=== PATIENT | male | born 1975 | race Caucasian/White ===

== ENCOUNTER 2024-01-21 10:55 | Emergency (ER) | payer BC, SELFPAY ==
[2024-01-21 11:30] VITALS: BP 121/78; PULSE 65; RESP 18; TEMP 36.7; O2SAT 100; BMI 22.4
--- NOTE | 2024-01-21 11:37 | EXP.UTC ---
Discharge Plan Disposition Patient Disposition: Home, Self-Care Condition: Good Prescriptions Prescriptions: New methylprednisolone 4 mg Tablets,Dose Pack 4 mg PO DIRECTED 6 Days Qty: 21 0RF Rx Instructions: Take 1 pack as directed for 6 days amoxicillin-pot clavulanate 875-125 mg Tablet 1 tab PO Q12H Qty: 20 0RF Referrals Follow up/Referrals: Provider,Referral, MD [Primary Care Provider] - See instructions Activity Restrictions/Add. Instructions Additional Instructions/Restrictions: Take tylenol or ibuprofen for pain or fever. Take the medications as directed. Stop the amoxicillin that you are taking. Follow up with your regular doctor. Follow up with a dentist. GO TO THE ER FOR ANY WORSENING SYMPTOMS Clinical Impressions Clinical Impression: Sinusitis, Pain, dental Instructions Patient Instructions: Sinusitis, DI for Sinusitis Discharge ED Provider: Froylan Landry [facility] [place] [facility] [place] General Stated complaint: top jaw pain Time Seen by Provider: 01/21/24 11:37 History of Present Illness Provider Complaint: He states that for the past 4 days he has had left upper jaw pain. He does not know whether he is having an issue with his tooth or a sinus infection. He has had some sinus congestion also. He denies any fever/chills. Related Data Previous Rx's Medication Instructions Recorded amoxicillin 875 mg-potassium 1 tab PO Q12H #20 tabs 01/21/24 clavulanate 125 mg tablet methylprednisolone 4 mg tablets in 4 mg PO DIRECTED 6 days #21 tabs 01/21/24 a dose pack Allergies Allergy/AdvReac Type Severity Reaction Status Date / Time No Known Allergies Allergy Verified 01/21/24 11:40 [facility] Disclaimer: The information contained in this section may have been updated after the patient was seen, as this information can be updated by other users. Social History Smoking Status: Never smoker alcohol intake: never current occupational status: employed Travel in the last 8 weeks: None ROS Obtained: Yes All systems reviewed & no additional complaints except as documented Constitutional Constitutional: Reports poor appetite Eyes Eyes: Reports system reviewed and no additional complaints, except as documented ENT Ears, Nose, Mouth, and Throat: Reports as per HPI Cardiovascular Cardiovascular: Reports system reviewed and no additional complaints, except as documented and Denies chest pain Respiratory Respiratory: Denies shortness of breath, Denies chest congestion, Reports cough, Denies stridor and Denies wheezing Gastrointestinal Gastrointestingal: Reports system reviewed and no additional complaints, except as documented; Denies abdominal pain, diarrhea or vomiting Musculoskeletal Musculoskeletal: Reports system reviewed and no additional complaints, except as documented and Denies arthralgias Integumentary/Breasts Skin/Breast: Reports system reviewed and no additional complaints, except as documented and Denies rash Neurologic Neurologic: Denies paresthesias Allergic/Immunologic Allergic/Immunologic: Denies wheezing Physical Exam General General appearance: alert and in no apparent distress Head Head exam: atraumatic, normocephalic and normal inspection Eye Eye exam: Present normal appearance, PERRL and EOMI ENT ENT exam: Present mucous membranes moist, TM's normal bilaterally and normal external ear exam Expanded ENT Exam Nose exam: Absent sinus tenderness Nasal speculum exam: Bilateral: normal Mouth exam: Present normal external inspection; Absent drooling or tongue swelling Teeth exam: Present gingival swelling Throat exam: Present normal inspection Neck Neck exam: Present normal inspection, full ROM and trachea midline; Absent meningismus or lymphadenopathy Chest Chest inspection: Present normal inspection and symmetric chest wall rise; Absent tenderness Respiratory Respiratory exam: Present normal lung sounds bilaterally; Absent respiratory distress Cardiovascular Cardiovascular exam: Present regular rate and normal rhythm; Absent JVD Abdominal Exam Abdominal exam: Present soft and normal bowel sounds; Absent distention, tenderness or guarding Extremities Exam Extremities exam: Present normal inspection, full ROM and normal capillary refill; Absent calf tenderness Back Exam Back exam: Present normal inspection; Absent tenderness Neurological Exam Neurological exam: Present alert and oriented X3 Psychiatric Psychiatric exam: Present normal affect and normal mood Skin Skin exam: Present warm, dry, intact and normal color Lymphatic Lymphatic Findings: no adenopathy Medical Decision Making Medical Records Medical records reviewed: No I reviewed the patient's medical records. Imtiaz Inquiry Pt receiving controlled substance: No
[2024-01-21 12:29] VITALS: BP 121/78; PULSE 65; RESP 18; TEMP 36.7; O2SAT 100
== END 2024-01-21 12:29 | disposition home or self-care (01) ==
PROVIDERS: Emergency Provider Nurse Practitioner Family
DX: R68.84 Jaw pain (principal); J01.90 Acute sinusitis, unspecified; R09.81 Nasal congestion
CPT/HCPCS: 99204; 99212; G0463

== ENCOUNTER 2025-08-16 20:18 | Emergency (ER) | payer BC, SELFPAY ==
[2025-08-16 20:21] VITALS: BP 130/96; PULSE 67; RESP 18; TEMP 37.1; O2SAT 100; BMI 23.7
--- NOTE | 2025-08-16 20:42 | ED_ITS ---
Discharge Plan Disposition Patient Disposition: Home, Self-Care Prescriptions Prescriptions: No Action rizatriptan 10 mg tablet See Rx Instructions PO .COMPLEX Qty: 30 1RF Rx Instructions: take 1 tab at onset of headache; if no relief may repeat 1 tab after at least 2 hrs; max = 3 tabs/24 hr PO methylprednisolone 4 mg Tablets,Dose Pack 4 mg PO DIRECTED 6 Days Qty: 21 0RF Rx Instructions: Take 1 pack as directed for 6 days amoxicillin-pot clavulanate 875-125 mg Tablet 1 tab PO Q12H Qty: 20 0RF Referrals Follow up/Referrals: Provider,Referral, MD [Primary Care Provider, Medical] - See instructions Activity Restrictions/Add. Instructions Additional Instructions/Restrictions: You likely have a concussion as the cause of your symptoms. You will likely have a headache over the next several days. You can take Tylenol and ibuprofen to help with your headache. You may find that you are fatigued and have brain fog . Do not return to sports until you are cleared by your primary care physician and symptoms have resolved. If you develop any new or worsening symptoms, such as difficulty waking up, worsening confusion, vomiting, worsening headache, vision changes, or if you become concerned for your help for any reason, return to the emergency department for evaluation Clinical Impressions Clinical Impression: Concussion Instructions Patient Instructions: Concussion Print Language Print Language: Sudanese Discharge ED Provider: Devante Boo Adult HPI General Chief complaint: Head Injury Stated complaint: fall Time Seen by Provider: 08/16/25 20:27 Mode of Arrival: Ambulatory Source of Information: Patient and Significant Other Description of Symptoms (Recalled from ER Triage Doc. by RN): pt presents for evaluation of head injury that occurred approx 30 mins [employer] while the patient was playing pickleball. Family at the bedside reports that patient was running backwards when he lost balance and hit a will with the back of his head. Pt had +LOC at time of incident, as well as laceration to back of head. Pt does not take blood thinners. Reports slight confusion at time of incident, but is starting to remember as time goes on. Pt reports pain and tenderness to head with slight soreness in his neck. +ROM, +CMS. History of Present Illness HPI narrative: Jasmeet Gayle is a 50y male with a history of migraines but is otherwise healthy who presents to the emergency department after head injury. Patient and his state that he was playing pickle ball approximately 1 hour prior to arrival and was running after the ball when he tripped and fell, hitting the back of his head on a wall. His states that he lost consciousness for a second or 2. She states that after the incident, he was asking the same question repeatedly and that is when she became concerned. Patient states that he initially did not remember the incident but cannot remember falling and hitting his head now. They note a small abrasion over the posterior scalp. Patient denies headache, vision changes, neck pain, preceding chest pain, shortness of breath and has not been vomiting. Related Data Previous Rx's ?Medication ?Instructions ?Recorded amoxicillin 875 mg-potassium 1 tab PO Q12H #20 tabs clavulanate 125 mg tablet methylprednisolone 4 mg tablets in 4 mg PO DIRECTED 6 days #21 tabs 01/21/24 a dose pack rizatriptan 10 mg tablet See Rx Instructions PO .COMP IVETT 01/29/24 #30 tabs Allergies Allergy/AdvReac Type Severity Reaction Status Date / Time No Known Allergies Allergy Verified 01/29/24 08:54 [facility] Disclaimer: The information contained in this section may have been updated after the patient was seen, as this information can be updated by other users. Medical History (Updated 08/16/25 @ 20:42 by Devante Boo MD) Migraine Surgical History (Updated 01/29/24 @ 08:57 by Juliana Angel MA) History of dental surgery Family History (Updated 01/29/24 @ 08:58 by Juliana Angel MA) Family/Other No significant family history Social History (Updated 01/29/24 @ 09:00 by Juliana Angel MA) Smoking Status: Never smoker alcohol intake: never substance use type: denies use current occupational status: employed Travel in the last 8 weeks?: None lives independently: Yes marital status: Have you lived/traveled outside [place] in past 30 days?: No Contact w/someone who lives/traveled outside [place] past 30 days?: No Exposure to someone with infectious disease in past 14 days?: No Do you have a fever (greater than 100.4 F or 38 C)?: No Have you tested positive for COVID-19?: No Exposed to someone with COVID-19 in past 14 days?: No Do you have a sore throat?: No Do you have a cough?: No Do you have any weakness?: No Do you have any diarrhea?: No Are you experiencing any unusual bleeding?: No Do you have any muscle aches/pain?: No Do you have any abdominal pain?: No Are you experiencing loss of taste or smell?: No Other Medical History Have you received the Pneumonia Vaccine: No ROS Obtained: Yes Systems reviewed as appropriate & no additional complaints except as documented Physical Exam General General appearance: alert and in no apparent distress Head Head exam: other (small superficial abrasion over the posterior mid scalp) Eye Eye exam: Present normal appearance, PERRL and EOMI ENT ENT exam: Present normal external ear exam Neck Neck exam: Present normal inspection and full ROM; Absent tenderness Chest Chest inspection: Present symmetric chest wall rise Respiratory Respiratory exam: Present normal lung sounds bilaterally and stridor; Absent respiratory distress or wheezes Cardiovascular Cardiovascular exam: Present regular rate and normal rhythm Abdominal Exam Abdominal exam: Present soft; Absent tenderness or guarding exam: Present deferred Extremities Exam Extremities exam: Present normal inspection Back Exam Back exam: Present normal inspection; Absent vertebral tenderness Neurological Exam Neurological exam: Present alert, oriented X3, CN II-XII intact, normal gait and other (No dysdiadochokinesia, normal [id number] testing); Absent motor sensory deficit Psychiatric Psychiatric exam: Present normal affect Skin Skin exam: Present warm and dry Medical Decision Making Medical Records Screening: Per USPSTF and CDC recommendations, given the prevalence of disease in our region, it is our hospital?s policy to screen for HIV and viral Hepatitis for all patients aged 18 and over and those with ongoing risk factors. Imtiaz Inquiry Pt receiving controlled substance: No Vital Signs: 08/16/25 20:21 08/16/25 20:49 Temperature 98.7 F 97.9 F Temperature Source Oral Pulse Rate 69 Pulse Rate [Radial] 67 Respiratory Rate 18 20 Blood Pressure 126/69 Blood Pressure [Right Arm] 130/96 H Blood Pressure Mean [Right Arm] 107 Blood Pressure Position [Right Arm] Sitting 02 Sat by Pulse Oximetry 100 Oxygen Delivery Method Room Air Room Air Medical Decision Narrative: Jasmeet Gayle is a 50y male with a history of migraines but is otherwise healthy who presents to the emergency department after head injury. Patient and his state that he was playing pickle ball approximately 1 hour prior to arrival and was running after the ball when he tripped and fell, hitting the back of his head on a wall. His states that he lost consciousness for a second or 2. She states that after the incident, he was asking the same question repeatedly and that is when she became concerned. Patient states that he initially did not remember the incident but cannot remember falling and hitting his head now. They note a small abrasion over the posterior scalp. Patient denies headache, vision changes, neck pain, preceding chest pain, shortness of breath and has not been vomiting. On arrival, patient is hemodynamically stable, in no acute distress, breathing comfortably on room air with appropriate oxygen saturation. Patient is alert, answering questions appropriately, GCS 15. Cardiopulmonary exam is unremarkable with breath sounds present bilaterally. He has no abdominal tenderness. He has full range of motion of his neck and no tenderness in the mid C-spine. He does not appear intoxicated. He has a small superficial abrasion over the posterior mid scalp. Pupils equal round and reactive to light. Extraocular movements intact. Cranial nerves II through XII are intact. He has full strength and sensation to his bilateral upper and lower extremities. No dysdiadochokinesia. Normal [id number] testing. Patient's neurological exam is completely normal. Patient is not on any blood thinning medications. Based on [place] head CT rules, CT imaging of the head is not necessary for the patient as there is low concern for any clinically significant intracranial hemorrhage based on this. Based on NEXUS criteria, there is low concern for any fracture of the cervical spine. I explained he is low risk for any intracranial hemorrhage or cervical spine fracture based on these criteria and joint decision-making was had with the patient and family and decision was made not to pursue any CT imaging at this time. Tetanus shot was offered to the patient, however he declined. Patient was offered Tylenol or ibuprofen, however he declined. I do feel the patient symptomatology is most consistent with a concussion. I encouraged him to avoid playing sports until he is cleared by his primary care physician and symptoms have resolved. I recommended Tylenol and ibuprofen for continued headaches and gave the patient strict return precautions for any worsening of his symptoms. He and his both demonstrated understanding and were in agreement with this plan. He was then discharged from the emergency department in stable condition. Critical Care Critical Care Time Critical Care Time: No
[2025-08-16 20:49] VITALS: BP 126/69; PULSE 69; RESP 20; TEMP 36.6; O2SAT 100
== END 2025-08-16 20:55 | disposition home or self-care (01) ==
PROVIDERS: Emergency Provider Student in an Organized Health Care Education/Training Program
DX: S06.0X0A Concussion without loss of consciousness, initial encounter (principal); W01.198A Fall on same level from slipping, tripping and stumbling with subsequent striking against other object, initial encounter
CPT/HCPCS: 99283; 99284